=== PATIENT | male | born 1970 | race Two or more races ===

== ENCOUNTER 2024-11-06 20:12 | Inpatient (IN) | payer SELFPAY ==
[~2024-11-06] VITALS: Ht 167.6 cm; Wt 71.2 kg
[2024-11-06] MEDS ORDERED: DEXTROSE 50%-WATER 50 ML DISP.SYRIN ONE (20:27)
[2024-11-06] MEDS ORDERED: Sodium Chloride 77 MEQ in IV 10% DEXTROSE 1,000 ML IV PRN (20:30)
[2024-11-06] MEDS: DEXTROSE 50%-WATER 50 ML DISP.SYRIN IVP ONE (20:32)
[2024-11-06] MEDS: IV NS 0.9% 1,000 ML BAG IV ONE (20:32)
[2024-11-06 20:38] LABS: PLATELET COUNT (AUTO) 272 K/uL (150-450); RED BLOOD CELL COUNT(AUTO) 4.30 MIL/uL (4.5-6.0); RED CELL DISTRIBUTION WIDTH 17.0 % (11.5-15.0); WHITE BLOOD COUNT (AUTO) 12.9 K/uL (4.3-11.0)
[2024-11-06 20:46] LABS: CALCIUM, SERUM 8.3 mg/dL (8.5-10.1); CREATININE 1.3 mg/dL (0.6-1.3); SODIUM SERUM 140 mmol/L (136-145); UREA NITROGEN, BLOOD 15 mg/dL (7-18)
[2024-11-06 20:52] LABS: ALCOHOL, BLOOD < 3 mg/dL (0-10); ASPARTATE AMINOTRANSFERASE 32 U/L (15-37); TOTAL PROTEIN, SERUM 6.9 g/dL (6.4-8.2)
[2024-11-06] MEDS: IV D5/0.45 NACL 1,000 ML IV ONE (20:53)
[2024-11-06 20:57] LABS: INR 0.97 (0.91-1.10)
[2024-11-06 21:27] LABS: APPEARANCE,URINE CLEAR (CLEAR); BLOOD, URINE 1+ Ery/uL (NEGATIVE); LEUKOCYTE ESTERASE ,URINE NEGATIVE (NEGATIVE); NITRITE, URINE NEGATIVE (NEGATIVE); UGLUCOSE NEGATIVE (NEGATIVE)
[2024-11-06 21:39] LABS: SQUAMOUS EPITHELIAL CELL,UR Few /HPF (None Seen)
[2024-11-06 21:40] LABS: ADD URINE CULTURE YES
[2024-11-06 21:43] LABS: FINE GRANULAR CASTS,URINE Rare /LPF (None Seen); HYALINE CASTS, URINE Rare /LPF (None Seen); URINE AMORPHOUS PHOSPHATES Few /HPF (None Seen)
[2024-11-06 21:57] LABS: BARBITURATE, URINE NEGATIVE (NEGATIVE); BENZODIAZEPINE, URINE NEGATIVE (NEGATIVE); CANNABINOID, URINE NEGATIVE (NEGATIVE); COCCAINE, URINE NEGATIVE (NEGATIVE); OPIATE, URINE NEGATIVE (NEGATIVE)
[2024-11-06 21:58] LABS: AMPHETAMINE, URINE POSITIVE (NEGATIVE)
[2024-11-06] MEDS ORDERED: ONDANSETRON HCL/PF 4 MG/2 ML VIAL IVP PRN (22:30)
[2024-11-06] MEDS ORDERED: MAGNESIUM HYDROXIDE 30 ML UDC PO PRN (22:30)
[2024-11-06] MEDS ORDERED: ACETAMINOPHEN 325 MG TABLET PO PRN (22:30)
[2024-11-06] MEDS ORDERED: DEXTROSE 50%-WATER 50 ML DISP.SYRIN IV PRN (22:30)
[2024-11-06] MEDS ORDERED: MAG HYDROX/AL HYDROX/SIMETH 30 ML UDC PO PRN (22:30)
[2024-11-06] MEDS: BLOOD SUGAR DIAGNOSTIC 1 EACH STRIP IN SCH (23:58)
[2024-11-06] MEDS: INSULIN REGULAR, HUMAN 100 UNIT/ML 3 ML VIAL SQ PRN (23:59)
[2024-11-07] VITALS (19 sets, daily range): BP systolic 100–124; BP diastolic 65–86; TEMP 97.6–98.6; O2SAT 87–100
[2024-11-07] MEDS: ENOXAPARIN SODIUM 40 MG/0.4 ML DISP.SYRIN SQ SCH (00:01)
[2024-11-07] MEDS: IV D5/0.45 NACL 1,000 ML IV PRN (01:23)
[2024-11-07 04:29] LABS: PLATELET COUNT (AUTO) 212 K/uL (150-450); RED BLOOD CELL COUNT(AUTO) 3.70 MIL/uL (4.5-6.0); RED CELL DISTRIBUTION WIDTH 17.2 % (11.5-15.0); WHITE BLOOD COUNT (AUTO) 6.3 K/uL (4.3-11.0)
[2024-11-07 05:20] LABS: ASPARTATE AMINOTRANSFERASE 71.0 U/L (15-37); CALCIUM, SERUM 7.4 mg/dL (8.5-10.1); CREATININE 0.7 mg/dL (0.6-1.3); PHOSPHORUS 4.6 mg/dL (2.5-4.9); SODIUM SERUM 137.0 mmol/L (136-145); TOTAL PROTEIN, SERUM 5.9 g/dL (6.4-8.2); UREA NITROGEN, BLOOD 16.0 mg/dL (7-18)
[2024-11-07] MEDS ORDERED: HEPARIN INFUSION/D5W 500 ML IV PRN (06:30)
[2024-11-07] MEDS: PANTOPRAZOLE 40 MG VIAL IV SCH (09:06)
[2024-11-07 10:42] LABS: LDL 48 mg/dL (0-99)
[2024-11-07 10:47] LABS: IRON, SERUM 23 ug/dl (50-175)
[2024-11-07] MEDS: ENOXAPARIN SODIUM 80 MG/0.8 ML DISP.SYRIN SQ SCH (12:00)
[2024-11-07] MEDS ORDERED: ENOXAPARIN SODIUM 40 MG/0.4 ML DISP.SYRIN SQ SCH (21:00)
[2024-11-08] VITALS: BP 115/74; TEMP 97.7; O2SAT 96
[2024-11-08 04:00] VITALS: BP 114/74; TEMP 97.9; O2SAT 95
[2024-11-08 07:48] LABS: PLATELET COUNT (AUTO) 162 K/uL (150-450); RED BLOOD CELL COUNT(AUTO) 3.84 MIL/uL (4.5-6.0); RED CELL DISTRIBUTION WIDTH 17.0 % (11.5-15.0); WHITE BLOOD COUNT (AUTO) 6.5 K/uL (4.3-11.0)
[2024-11-08 07:55] LABS: ASPARTATE AMINOTRANSFERASE 83.0 U/L (15-37); CALCIUM, SERUM 7.7 mg/dL (8.5-10.1); CREATININE 0.5 mg/dL (0.6-1.3); PHOSPHORUS 2.5 mg/dL (2.5-4.9); SODIUM SERUM 134.0 mmol/L (136-145); TOTAL PROTEIN, SERUM 5.8 g/dL (6.4-8.2); UREA NITROGEN, BLOOD 15.0 mg/dL (7-18)
[2024-11-08 08:00] VITALS: BP 114/74; TEMP 97.9; O2SAT 95
[2024-11-08 12:00] VITALS: BP 133/75; TEMP 98.1; O2SAT 94
[2024-11-08 16:29] VITALS: BP 118/65; TEMP 98.1; O2SAT 94
[2024-11-09] MEDS ORDERED: HALOPERIDOL LACTATE INJ 5 MG/ML VIAL ONE (17:12)
[2024-11-09] MEDS ORDERED: LORAZEPAM INJ 2 MG/ML VIAL ONE (17:13)
== END 2024-11-08 18:32 | disposition left against medical advice (07) | DRG 917 ==
LOC: ER 20:17 → ICU 22:36 → TELE-TD 11-07 18:24 → TELE1 11-07 18:54
PROVIDERS: ADMIT Nurse Practitioner Family; ATTEND Internal Medicine
DX: T40.411A Poisoning by fentanyl or fentanyl analogs, accidental (unintentional), initial encounter (principal); G92.8 Other toxic encephalopathy; I21.A1 Myocardial infarction type 2; D68.59 Other primary thrombophilia; Z59.00 Homelessness unspecified; N39.0 Urinary tract infection, site not specified; F19.10 Other psychoactive substance abuse, uncomplicated; D64.9 Anemia, unspecified; Y92.89 Other specified places as the place of occurrence of the external cause; E16.2 Hypoglycemia, unspecified; D72.829 Elevated white blood cell count, unspecified; T43.651A Poisoning by methamphetamines accidental (unintentional), initial encounter
CPT/HCPCS: 36415; 70450-TC; 71045-TC; 80048-TC; 80053-TC; 80061-TC; 80076-TC; 81001; 82728-TC; 82962-TC; 83540-TC; 83735-TC; 84100-TC; 84443-TC; 84484-TC; 85025-TC; 85730-TC; 87086-TC; 93307-TC; A4223; G0378; G0480; J1200; J1630; J1650; J1815; J2060; J2470; J3490